=== PATIENT | female | born 1950 | race Caucasian/White ===

== ENCOUNTER 2024-07-20 19:32 | Inpatient (IN) | payer MEDICARE ==
[~2024-07-20] VITALS: Ht 154.9 cm; Wt 81.6 kg
[2024-07-20 19:53] VITALS: RESP 16; TEMP 99.1
[2024-07-20] MEDS ORDERED: IOPAMIDOL 370 MG/ML 100 ML INFUS..BTL INJ ONE (20:06)
[2024-07-20 20:58] LABS: BASOPHILS # (AUTO) 0.1 (0.0-0.1); BASOPHILS % 1.1 % (0.0-1.0); EOSINOPHILS % 0.4 % (0.0-6.0); HEMATOCRIT 37.1 % (34.2-44.1); HEMOGLOBIN 10.9 g/dL (12.0-16.0); LYMPHOCYTES % 24.2 % (18.0-39.1); MEAN CORPUSCULAR HEMOGLOBIN 22.4 pg (28-32); MEAN CORPUSCULAR HGB CONC 29.4 g/dL (31-35); MEAN CORPUSCULAR VOLUME 76.2 fL (81-99); MONOCYTES # (AUTO) 0.7 (0.2-0.8); NEUTROPHILS # (AUTO) 5.6 (2.1-6.9); NEUTROPHILS % 66.1 % (38.7-80.0); PLATELET COUNT 265 x10e3/uL (140-360); RED BLOOD COUNT 4.87 x10e6/uL (3.6-5.1); RED CELL DISTRIBUTION WIDTH 16.4 % (11.7-14.4); WHITE BLOOD COUNT 8.39 x10e3/uL (4.8-10.8)
[2024-07-20 21:03] LABS: BILIRUBIN,URINE NEGATIVE (NEGATIVE); CLARITY,URINE HAZY (CLEAR); COLOR,URINE YELLOW (YELLOW); GLUCOSE, URINE NEGATIVE (NEGATIVE); KETONES,URINE NEGATIVE (NEGATIVE); LEUKOCYTE ESTERASE ,URINE 1+ (NEGATIVE); NITRITE,URINE NEGATIVE (NEGATIVE); PH,URINE 6 (5 - 7); PROTEIN,URINE DIPSTICK NEGATIVE (NEGATIVE); URINE UROBILINOGEN 0.2 mg/dL (0.2 - 1)
[2024-07-20 21:15] LABS: BACTERIA,URINE MANY /HPF; EPITHELIAL CELLS,URINE FEW /LPF; RBC,URINE 0-5 /HPF (0-5); RENAL EPITHELIAL CELLS,URINE MODERATE; TRANSITIONAL EPI CELLS,URINE FEW
[2024-07-20 21:18] LABS: ALBUMIN/GLOBULIN RATIO 1.3 (0.8-2.0); ANION GAP 14.6 mmol/L (8-16); BILIRUBIN,TOTAL 0.4 mg/dL (0.2-1.2); CREATININE, SERUM 0.95 mg/dL (0.57-1.11); POTASSIUM 3.6 mmol/L (3.5-5.1)
[2024-07-20 21:24] LABS: TROPONIN I 0.008 ng/mL (0-0.300)
[2024-07-20] MEDS ORDERED: ONDANSETRON HCL INJ 2MG/ML 2ML 2 MG/ML VIAL IV PRN (21:30)
[2024-07-20] MEDS ORDERED: Morphine 4mg INJECTION 4 MG/ML INJ IV PRN (21:30)
[2024-07-20] MEDS ORDERED: LEVOFLOXACIN 750MG/D5W 150ML 150 ML IV SCH (21:30)
[2024-07-20 21:55] VITALS: PULSE 88
[2024-07-20 22:08] VITALS: PULSE 69; RESP 20; O2SAT 98
[2024-07-20] MEDS: SODIUM CHLORIDE 0.9% 1000ML 1,000 ML IV SCH (22:27)
[2024-07-20 23:11] VITALS: BP 124/68; PULSE 66; RESP 16; TEMP 98.1; O2SAT 99
[2024-07-21] VITALS (10 sets, daily range): BP systolic 103–124; BP diastolic 56–77; PULSE 66–82; RESP 16–22; TEMP 97.7–98.4; O2SAT 96–100
[2024-07-21 06:26] LABS: BASOPHILS # (AUTO) 0.1 (0.0-0.1); EOSINOPHILS # (AUTO) 0.1 (0.0-0.4); EOSINOPHILS % 1.1 % (0.0-6.0); HEMATOCRIT 34.5 % (34.2-44.1); LYMPHOCYTES # (AUTO) 2.1 (1.0-3.2); MEAN CORPUSCULAR HEMOGLOBIN 22.4 pg (28-32); MEAN CORPUSCULAR VOLUME 77.4 fL (81-99); MONOCYTES # (AUTO) 0.6 (0.2-0.8); MONOCYTES % 9.8 % (4.4-11.3); NEUTROPHILS # (AUTO) 3.4 (2.1-6.9); NEUTROPHILS % 54.8 % (38.7-80.0); PLATELET COUNT 246 x10e3/uL (140-360); RED BLOOD COUNT 4.46 x10e6/uL (3.6-5.1); RED CELL DISTRIBUTION WIDTH 16.4 % (11.7-14.4); WHITE BLOOD COUNT 6.24 x10e3/uL (4.8-10.8)
[2024-07-21 06:46] LABS: ALBUMIN 3.5 g/dL (3.5-5.0); ALBUMIN/GLOBULIN RATIO 1.3 (0.8-2.0); ANION GAP 8.6 mmol/L (8-16); BILIRUBIN,TOTAL 0.3 mg/dL (0.2-1.2); CALCIUM 8.9 mg/dL (8.4-10.2); CREATININE, SERUM 0.91 mg/dL (0.57-1.11); POTASSIUM 3.6 mmol/L (3.5-5.1); TOTAL PROTEIN 6.1 g/dL (6.5-8.1)
[2024-07-21 07:04] LABS: CREATINE KINASE 30 IU/L (29-168)
[2024-07-21 07:14] LABS: TROPONIN I < 0.001 ng/mL (0-0.300)
[2024-07-21] MEDS ORDERED: METOPROLOL TARTRATE INJ 1 MG/ML VIAL IV PRN (09:30)
[2024-07-21] MEDS ORDERED: POLYETHYLENE GLYCOL 3350 17 GM PACK PO PRN (09:30)
[2024-07-21 09:53] LABS: CHOL/HDL RATIO 5.2 (3.0-3.6); MAGNESIUM 1.7 MG/DL (1.3-2.1); PHOSPHORUS 3.3 MG/DL (2.3-4.7)
[2024-07-21 10:14] LABS: FREE T4 (FREE THYROXINE) 1.23 ng/dL (0.8-1.8); THYROID STIMULATING HORMONE 3.039 uIU/mL (0.350-4.940)
[2024-07-21] MEDS: MAGNESIUM SULF 1GRAM/DEXTROSE 100 ML IV ONE (12:36)
[2024-07-21] MEDS ORDERED: LEVOTHYROXINE75 MCG PO (14:58)
[2024-07-21] MEDS ORDERED: LANSOPRAZOLE30 MG PO (14:58)
[2024-07-21] MEDS: FAMOTIDINE 20 MG TAB PO SCH (16:54)
[2024-07-21] MEDS: DOCUSATE SODIUM 100 MG CAP PO SCH (17:00)
[2024-07-22] VITALS (11 sets, daily range): BP systolic 113–123; BP diastolic 53–73; PULSE 62–84; RESP 16–20; TEMP 97.4–98.6; O2SAT 95–100
[2024-07-22 05:29] LABS: BASOPHILS % 0.6 % (0.0-1.0); EOSINOPHILS # (AUTO) 0.1 (0.0-0.4); EOSINOPHILS % 1.9 % (0.0-6.0); HEMATOCRIT 34.5 % (34.2-44.1); HEMOGLOBIN 9.7 g/dL (12.0-16.0); LYMPHOCYTES # (AUTO) 2.2 (1.0-3.2); LYMPHOCYTES % 31.1 % (18.0-39.1); MEAN CORPUSCULAR HEMOGLOBIN 22.1 pg (28-32); MEAN CORPUSCULAR HGB CONC 28.1 g/dL (31-35); MEAN CORPUSCULAR VOLUME 78.6 fL (81-99); MONOCYTES # (AUTO) 0.7 (0.2-0.8); MONOCYTES % 9.2 % (4.4-11.3); NEUTROPHILS # (AUTO) 4.1 (2.1-6.9); NEUTROPHILS % 56.9 % (38.7-80.0); PLATELET COUNT 235 x10e3/uL (140-360); RED BLOOD COUNT 4.39 x10e6/uL (3.6-5.1); RED CELL DISTRIBUTION WIDTH 16.5 % (11.7-14.4)
[2024-07-22] MEDS: LEVOTHYROXINE SODIUM 75 MCG TAB PO SCH (05:53)
[2024-07-22 06:02] LABS: ANION GAP 11.6 mmol/L (8-16); CALCIUM 8.2 mg/dL (8.4-10.2); CREATININE, SERUM 0.91 mg/dL (0.57-1.11); POTASSIUM 3.6 mmol/L (3.5-5.1)
[2024-07-22 06:30] LABS: CREATINE KINASE 33 IU/L (29-168)
[2024-07-22 08:32] LABS: TROPONIN I < 0.05 ng/mL (0.0-0.40)
[2024-07-22] MEDS ORDERED: MEROPENEM 500 MG VIAL IV SCH (14:00)
[2024-07-22] MEDS: ACETAMINOPHEN 325 MG TAB PO PRN (22:13)
[2024-07-23] VITALS (9 sets, daily range): BP systolic 113–128; BP diastolic 68–83; PULSE 71–78; RESP 18–22; TEMP 97.7–98.7; O2SAT 96–100
[2024-07-23 06:03] LABS: BASOPHILS # (AUTO) 0.1 (0.0-0.1); BASOPHILS % 1.1 % (0.0-1.0); EOSINOPHILS # (AUTO) 0.1 (0.0-0.4); EOSINOPHILS % 0.7 % (0.0-6.0); HEMATOCRIT 34.4 % (34.2-44.1); LYMPHOCYTES # (AUTO) 1.9 (1.0-3.2); LYMPHOCYTES % 26.6 % (18.0-39.1); MEAN CORPUSCULAR HEMOGLOBIN 22.6 pg (28-32); MEAN CORPUSCULAR HGB CONC 29.1 g/dL (31-35); MEAN CORPUSCULAR VOLUME 77.7 fL (81-99); MONOCYTES # (AUTO) 0.6 (0.2-0.8); MONOCYTES % 8.7 % (4.4-11.3); NEUTROPHILS # (AUTO) 4.5 (2.1-6.9); NEUTROPHILS % 62.5 % (38.7-80.0); PLATELET COUNT 233 x10e3/uL (140-360); RED BLOOD COUNT 4.43 x10e6/uL (3.6-5.1); RED CELL DISTRIBUTION WIDTH 16.5 % (11.7-14.4); WHITE BLOOD COUNT 7.13 x10e3/uL (4.8-10.8)
[2024-07-23 06:52] LABS: ANION GAP 10.8 mmol/L (8-16); CALCIUM 8.7 mg/dL (8.4-10.2); CREATININE, SERUM 0.95 mg/dL (0.57-1.11); POTASSIUM 3.8 mmol/L (3.5-5.1)
[2024-07-23] MEDS ORDERED: CEFTRIAXONE 2 GM in SODIUM CHLORIDE 0.9% 100 ML IV SCH (09:00)
[2024-07-23] MEDS ORDERED: ACETAMIN/BUTALBITAL/CAFFEINE TAB PO PRN (14:00)
[2024-07-23] MEDS: TRAMADOL HCL 50 MG TAB PO PRN (14:57)
[2024-07-24] VITALS (8 sets, daily range): BP systolic 118–139; BP diastolic 62–93; PULSE 57–84; RESP 16–18; TEMP 97.6–98.1; O2SAT 94–100
[2024-07-24 06:07] LABS: FERRITIN 6.87 ng/mL (4.63-204.00)
[2024-07-24 06:12] LABS: CREATININE, SERUM 0.85 mg/dL (0.57-1.11); MAGNESIUM 1.7 MG/DL (1.3-2.1)
[2024-07-24 07:16] LABS: FOLATE 12.6 ng/mL (7.0-15.4)
[2024-07-24] MEDS ORDERED: MAGNESIUM SULF 1GRAM/DEXTROSE 100 ML IV ONE (08:00)
[2024-07-24] MEDS ORDERED: FENTANYL CITRATE/PF 100MCG/2 ML INJ ONE (12:05)
[2024-07-24] MEDS ORDERED: MIDAZOLAM HCL 2 MG/2 ML VIAL ONE (12:05)
[2024-07-24] MEDS: MAGNESIUM SULF 1GRAM/DEXTROSE 100 ML IV ONE (13:26)
[2024-07-24] MEDS: SODIUM FERRIC GLUCONATE COMPLX 125 MG in SODIUM CHLORIDE 0.9% 100 ML IV SCH (16:21)
[2024-07-24] MEDS: TRAMADOL HCL 50 MG TAB PO PRN (21:45)
[2024-07-25] VITALS (9 sets, daily range): BP systolic 98–138; BP diastolic 53–76; PULSE 70–97; RESP 18–20; TEMP 97.9–99.1; O2SAT 98–100
[2024-07-25] MEDS: OMEPRAZOLE 20 MG CAP PO SCH (07:00)
[2024-07-25] MEDS ORDERED: ACETAMINOPHEN325 M1 PO (07:15)
[2024-07-25] MEDS ORDERED: SODIUM CHLORIDE 0.9% 100 ML ONE (08:09)
[2024-07-26] VITALS (9 sets, daily range): BP systolic 107–128; BP diastolic 51–72; PULSE 70–86; RESP 18–20; TEMP 97.8–98.2; O2SAT 97–100
[2024-07-26] MEDS: MUPIROCIN 2% OINT 22 GM TUBE TOP SCH (21:00)
[2024-07-27] VITALS (8 sets, daily range): BP systolic 102–119; BP diastolic 55–69; PULSE 67–80; RESP 17–18; TEMP 97.7–98.1; O2SAT 95–100
[2024-07-27] MEDS: TOBRAMYCIN 0.3% (OPTH) 5 ML BTL OP SCH (15:39)
[2024-07-27] MEDS ORDERED: OFLOXACIN (OPTH) 5 ML BOTTLE OP SCH (17:00)
[2024-07-28] VITALS (11 sets, daily range): BP systolic 101–119; BP diastolic 55–84; PULSE 61–79; RESP 16–20; TEMP 97.9–98.6; O2SAT 97–100
[2024-07-28] MEDS: NYSTATIN 15 GM POWDER UD BTL TOP SCH (17:11)
[2024-07-29 04:00] VITALS: BP 118/59; PULSE 70; RESP 17; TEMP 98.2; O2SAT 100
[2024-07-29 08:07] VITALS: PULSE 71; RESP 18; O2SAT 97
[2024-07-29 08:12] VITALS: BP 127/58; PULSE 68; RESP 18; TEMP 98.1; O2SAT 100
[2024-07-29] MEDS: DOCUSATE SODIUM 100 MG CAP PO SCH (09:00)
[2024-07-29] MEDS: FLUCONAZOLE 100 MG TAB PO SCH (09:00)
[2024-07-29] MEDS: NYSTATIN 15 GM POWDER UD BTL TOP SCH (11:03)
[2024-07-29 11:13] VITALS: BP 106/56; PULSE 72; RESP 18; TEMP 98.2; O2SAT 100
[2024-07-29 11:29] VITALS: BP 106/56; PULSE 72; RESP 18; TEMP 98.2; O2SAT 100
[2024-07-29] MEDS: NYSTATIN SUSPENSION 5 ML UDC PO SCH (12:57)
[2024-07-29] MEDS ORDERED: TOBRAMYCIN SULFA5 ML OP (15:11)
[2024-07-29] MEDS ORDERED: [UNRECOGNIZED DRUG - OTHER] PO (15:11)
[2024-07-29] MEDS ORDERED: NYSTATIN100000 UNI PO (15:11)
[2024-07-29] MEDS ORDERED: MUPIROCIN22 GM TOP (15:11)
== END 2024-07-29 16:45 | disposition home or self-care (01) | DRG 71 ==
LOC: ER 19:38 → ERHOLD 21:36 → MED/SURG2 22:58
PROVIDERS: ADMIT Internal Medicine; ATTEND Internal Medicine
PROC: 02HV33Z Insertion of Infusion Device into Superior Vena Cava, Percutaneous Approach (ICD-10-PCS; principal; 2024-07-24)
DX: G93.41 Metabolic encephalopathy (principal); B37.0 Candidal stomatitis; R42 Dizziness and giddiness; E89.0 Postprocedural hypothyroidism; R53.81 Other malaise; D64.9 Anemia, unspecified; E66.01 Morbid (severe) obesity due to excess calories; Z68.34 Body mass index [BMI] 34.0-34.9, adult; Z79.890 Hormone replacement therapy; Z95.820 Peripheral vascular angioplasty status with implants and grafts; H10.9 Unspecified conjunctivitis; Z86.16 Personal history of COVID-19; Z87.820 Personal history of traumatic brain injury; Z88.8 Allergy status to other drugs, medicaments and biological substances; Z88.0 Allergy status to penicillin; Z88.2 Allergy status to sulfonamides; Z88.1 Allergy status to other antibiotic agents; Z91.041 Radiographic dye allergy status; Z90.49 Acquired absence of other specified parts of digestive tract; Z98.1 Arthrodesis status; Z87.440 Personal history of urinary (tract) infections
CPT/HCPCS: 36415; 70450; 70544; 70551; 71045; 74470; 80048; 80053; 80061; 81001; 82550; 82607; 82728; 82746; 82948; 83036; 83540; 83690; 83735; 83880; 84100; 84439; 84443; 84466; 84484; 85025; 85045; 87086; 92523; 93005; 94799; 95819; 99252; 99284; J1335; J2185; J2250; J2916; J3475; J7030; J7050; Q9967

== ENCOUNTER 2024-08-23 21:53 | Emergency (ER) | payer MEDICARE ==
[~2024-08-23] VITALS: Ht 154.9 cm; Wt 81.6 kg
[~2024-08-23 21:53] MED LIST: ACETAMINOPHEN325 M1 PO; LANSOPRAZOLE30 MG PO; LEVOTHYROXINE75 MCG PO; MUPIROCIN22 GM TOP; NYSTATIN100000 UNI PO; TOBRAMYCIN SULFA5 ML OP; [UNRECOGNIZED DRUG - OTHER] PO
[2024-08-23] MEDS: KETOROLAC TROMETHAMINE 30 MG/ML VIAL IV STA (22:04)
[2024-08-23 22:07] VITALS: TEMP 98.6
[2024-08-23] MEDS: SODIUM CHLORIDE 0.9% 1000ML 1,000 ML IV STA (23:16)
[2024-08-23 23:25] LABS: BASOPHILS # (AUTO) 0.1 (0.0-0.1); BASOPHILS % 1.2 % (0.0-1.0); EOSINOPHILS % 0.4 % (0.0-6.0); HEMATOCRIT 40.9 % (34.2-44.1); HEMOGLOBIN 12.1 g/dL (12.0-16.0); LYMPHOCYTES # (AUTO) 2.2 (1.0-3.2); LYMPHOCYTES % 25.7 % (18.0-39.1); MEAN CORPUSCULAR HEMOGLOBIN 23.8 pg (28-32); MEAN CORPUSCULAR HGB CONC 29.6 g/dL (31-35); MEAN CORPUSCULAR VOLUME 80.5 fL (81-99); MONOCYTES # (AUTO) 0.6 (0.2-0.8); MONOCYTES % 6.8 % (4.4-11.3); NEUTROPHILS # (AUTO) 5.6 (2.1-6.9); NEUTROPHILS % 65.5 % (38.7-80.0); PLATELET COUNT 268 x10e3/uL (140-360); RED BLOOD COUNT 5.08 x10e6/uL (3.6-5.1); RED CELL DISTRIBUTION WIDTH 18.9 % (11.7-14.4); WHITE BLOOD COUNT 8.52 x10e3/uL (4.8-10.8)
[2024-08-23 23:40] LABS: ALBUMIN 4.3 g/dL (3.5-5.0); ALBUMIN/GLOBULIN RATIO 1.3 (0.8-2.0); ANION GAP 16.3 mmol/L (8-16); BILIRUBIN,TOTAL 0.3 mg/dL (0.2-1.2); CALCIUM 9.8 mg/dL (8.4-10.2); CREATININE, SERUM 1.44 mg/dL (0.57-1.11); TOTAL PROTEIN 7.5 g/dL (6.5-8.1)
[2024-08-23 23:45] LABS: POTASSIUM 3.3 mmol/L (3.5-5.1)
[2024-08-24 00:08] LABS: CLARITY,URINE SL CLOUDY (CLEAR); COLOR,URINE YELLOW (YELLOW); LEUKOCYTE ESTERASE ,URINE SMALL (NEGATIVE); NITRITE,URINE NEGATIVE (NEGATIVE); PH,URINE 5.5 (5 - 7); PROTEIN,URINE DIPSTICK 1+ (NEGATIVE)
[2024-08-24 00:09] LABS: BILIRUBIN,URINE SMALL (NEGATIVE); GLUCOSE, URINE NEGATIVE (NEGATIVE); KETONES,URINE TRACE (NEGATIVE); URINE UROBILINOGEN 0.2 mg/dL (0.2 - 1)
[2024-08-24 00:44] LABS: BACTERIA,URINE MANY /HPF; EPITHELIAL CELLS,URINE FEW /LPF
[2024-08-24] MEDS: KETOROLAC TROMETHAMINE 30 MG/ML VIAL IV STA (00:55)
[2024-08-24 01:00] VITALS: PULSE 81; RESP 16; O2SAT 100
[2024-08-24] MEDS ORDERED: DOXYCYCLINE HY100 MG PO (01:09)
[2024-08-24] MEDS ORDERED: ULTRAM 50MG50 MG PO (01:21)
== END 2024-08-24 01:45 | disposition home or self-care (01) ==
LOC: ER 21:59
DX: R11.2 Nausea with vomiting, unspecified (principal); R10.30 Lower abdominal pain, unspecified; K57.90 Diverticulosis of intestine, part unspecified, without perforation or abscess without bleeding; D64.9 Anemia, unspecified; K21.9 Gastro-esophageal reflux disease without esophagitis; Z87.442 Personal history of urinary calculi
CPT/HCPCS: 36415; 74176; 80053; 81001; 83690; 85025; 99283; J1885 ×2; J7030; 81025